=== PATIENT | female | born 1985 | race Caucasian/White ===

== ENCOUNTER 2025-10-20 02:25 | Inpatient (IN) | payer MEDICAID, OTHER ==
[2025-10-20] VITALS (11 sets, daily range): BP systolic 140–182; BP diastolic 83–102; TEMP 97.7–98.6; O2SAT 96–100
[~2025-10-20] VITALS: Ht 160 cm; Wt 88.5 kg
[2025-10-20] MEDS ORDERED: IPRATROPIUM BROMIDE 0.5 MG/2.5 ML NEBU ONE (02:49)
[2025-10-20] MEDS ORDERED: ALBUTEROL SULFATE 2.5 MG/3 ML NEBU ONE ×2 (02:49→03:29)
[2025-10-20] MEDS: IPRATROPIUM BROMIDE 0.5 MG/2.5 ML NEBU NEB ONE (02:54)
[2025-10-20] MEDS: ALBUTEROL SULFATE 2.5 MG/3 ML NEBU NEB ONE ×2 (02:54→03:26)
[2025-10-20 03:08] LABS: ABG BASE EXCESS -1.0 mmol/L (-2.0-3.0); ABG HCO3 25.8 mmol/L (21.0-28.0); ABG PCO2 51.3 mmHg (32.0-45.0); ABG PH 7.320 (7.350-7.450); ABG PO2 403.0 mmHg (83.0-108.0); ABG SITE RIGHT RADIAL; ABG TOTAL HEMOGLOBIN 14.6 G/dL (12.0-16.0); AaDO2 99.8 mmHg; FIO2 100.0 %; FLOW, BLOOD GAS 15.00 L/min (0.00-30.00)
[2025-10-20] MEDS ORDERED: IPRATROPIUM BROMIDE 0.5 MG/2.5 ML NEBU NEB PRN (07:00)
[2025-10-20] MEDS ORDERED: ONDANSETRON 4 MG/2 ML VIAL IV PRN (07:00)
[2025-10-20] MEDS ORDERED: MAGNESIUM HYDROXIDE 30 ML LIQUID UDC PO PRN (07:00)
[2025-10-20] MEDS ORDERED: ALBUTEROL SULFATE 1.25 MG/3 ML NEBU NEB PRN (07:00)
[2025-10-20] MEDS: ENOXAPARIN SODIUM 40 MG/0.4 ML DISP.SYRIN SQ SCH (08:21)
[2025-10-20] MEDS: IPRATROPIUM BROMIDE 0.5 MG/2.5 ML NEBU NEB SCH ×2 (08:25→11:07)
[2025-10-20] MEDS: ALBUTEROL SULFATE 1.25 MG/3 ML NEBU NEB SCH (08:25)
[2025-10-20 09:32] LABS: PLATELET COUNT (AUTO) 317 K/uL (179-408); RED BLOOD CELL COUNT(AUTO) 5.32 MIL/uL (3.63-4.92); RED CELL DISTRIBUTION WIDTH 14.6 % (12.3-17.7); WHITE BLOOD COUNT (AUTO) 14.8 K/uL (3.8-11.8)
[2025-10-20 09:48] LABS: ABG BASE EXCESS -2.4 mmol/L (-2.0-3.0); ABG HCO3 24.4 mmol/L (21.0-28.0); ABG PCO2 49.8 mmHg (32.0-45.0); ABG PH 7.308 (7.350-7.450); ABG PO2 97.1 mmHg (83.0-108.0); ABG SITE RIGHT RADIAL; ABG TOTAL HEMOGLOBIN 14.8 G/dL (12.0-16.0); AaDO2 96.7 mmHg; FIO2 40.0 %; FLOW, BLOOD GAS 5.00 L/min (0.00-30.00)
[2025-10-20 09:55] LABS: CREATININE 0.9 mg/dL (0.6-1.3); SODIUM SERUM 138.0 mmol/L (136-145); UREA NITROGEN, BLOOD 6.0 mg/dL (7-18)
[2025-10-20] MEDS ORDERED: FLUT1DIS4 IH (10:46)
[2025-10-20] MEDS ORDERED: HYDR12.55 PO (10:46)
[2025-10-20] MEDS ORDERED: AMLO10TA59 PO (10:46)
[2025-10-20] MEDS ORDERED: LORA-259 PO (10:47)
[2025-10-20] MEDS ORDERED: HYDR50TA62 PO (10:48)
[2025-10-20] MEDS ORDERED: GABA300C PO (10:48)
[2025-10-20] MEDS ORDERED: CLON0.1T PO (10:49)
[2025-10-20] MEDS ORDERED: QUET50TA PO (10:50)
[2025-10-20] MEDS ORDERED: METH-807 PO (10:50)
[2025-10-20] MEDS ORDERED: ONDA4TAB5 PO (10:51)
[2025-10-20] MEDS: AZITHROMYCIN IV 500 MG in IV DEXTROSE 5% 250 ML IV SCH (11:25)
[2025-10-20 16:25] LABS: *BILIRUBIN,URIN NEGATIVE (NEGATIVE); *BLOOD, URINE NEGATIVE (NEGATIVE); *CLARITY,URINE CLEAR (CLEAR); *COLOR,URINE YELLOW (YELLOW); *KETONES,URINE NEGATIVE (NEGATIVE); *PROTEIN,URINE NEGATIVE (NEGATIVE); *UROBILINOGEN,URINE 0.2 E.U./dl (NORMAL); LEUKOCYTE ESTERASE ,URINE NEGATIVE (NEGATIVE); NITRITE, URINE NEGATIVE (NEGATIVE); UGLUCOSE 3+ (NEGATIVE)
[2025-10-20 16:38] LABS: SQUAMOUS EPITHELIAL CELL,UR FEW /HPF (NONE SEEN)
[2025-10-20] MEDS: ACETAMINOPHEN 325 MG TABLET PO PRN (21:31)
[2025-10-21] VITALS (18 sets, daily range): BP systolic 116–148; BP diastolic 66–89; TEMP 97.8–99.4; O2SAT 94–100
[2025-10-21 06:41] LABS: PLATELET COUNT (AUTO) 317 K/uL (179-408); RED BLOOD CELL COUNT(AUTO) 5.06 MIL/uL (3.63-4.92); RED CELL DISTRIBUTION WIDTH 14.5 % (12.3-17.7); WHITE BLOOD COUNT (AUTO) 27.9 K/uL (3.8-11.8)
[2025-10-21 07:09] LABS: CREATININE 0.8 mg/dL (0.6-1.3); SODIUM SERUM 138.0 mmol/L (136-145); UREA NITROGEN, BLOOD 14.0 mg/dL (7-18)
[2025-10-21 08:17] LABS: *AMPHETAMINE, URINE POSITIVE (NEGATIVE); *BARBITURATE, URINE NEGATIVE (NEGATIVE); *BENZODIAZEPINE, URINE NEGATIVE (NEGATIVE); *CANNABINOID, URINE NEGATIVE (NEGATIVE); *COCCAINE, URINE NEGATIVE (NEGATIVE); *OPIATE, URINE NEGATIVE (NEGATIVE); *PHENCYCLIDINE SCREEN,URINE NEGATIVE (NEGATIVE); FENTANYL, URINE NEGATIVE (NEGATIVE)
[2025-10-21] MEDS ORDERED: AZIT500T2 PO (12:19)
[2025-10-21] MEDS ORDERED: PRED20TA PO (12:19)
[2025-10-22] VITALS (18 sets, daily range): BP systolic 130–166; BP diastolic 79–100; TEMP 97.3–98.8; O2SAT 93–100
[2025-10-22 06:30] LABS: ABG BASE EXCESS 5.7 mmol/L (-2.0-3.0); ABG HCO3 31.1 mmol/L (21.0-28.0); ABG PCO2 48.2 mmHg (32.0-45.0); ABG PH 7.428 (7.350-7.450); ABG PO2 79.9 mmHg (83.0-108.0); ABG SITE RIGHT RADIAL; ABG TOTAL HEMOGLOBIN 14.5 G/dL (12.0-16.0); AaDO2 96.0 mmHg; FIO2 32.0 %; FLOW, BLOOD GAS 3.00 L/min (0.00-30.00)
[2025-10-22 10:05] LABS: CREATININE 0.7 mg/dL (0.6-1.3); SODIUM SERUM 140.0 mmol/L (136-145); UREA NITROGEN, BLOOD 11.0 mg/dL (7-18)
[2025-10-22 10:08] LABS: PLATELET COUNT (AUTO) 323 K/uL (179-408); RED BLOOD CELL COUNT(AUTO) 5.47 MIL/uL (3.63-4.92); RED CELL DISTRIBUTION WIDTH 14.7 % (12.3-17.7); WHITE BLOOD COUNT (AUTO) 22.5 K/uL (3.8-11.8)
[2025-10-22] MEDS: LORAZEPAM 1 MG TABLET PO ONE (14:30)
[2025-10-22] MEDS: NICOTINE 21 MG/24HR PATCH TD SCH (18:14)
[2025-10-23] VITALS (12 sets, daily range): BP systolic 140–172; BP diastolic 89–114; TEMP 97.6–98; O2SAT 90–99
[2025-10-23 07:19] LABS: PLATELET COUNT (AUTO) 288 K/uL (179-408); RED BLOOD CELL COUNT(AUTO) 5.44 MIL/uL (3.63-4.92); RED CELL DISTRIBUTION WIDTH 14.6 % (12.3-17.7); WHITE BLOOD COUNT (AUTO) 14.7 K/uL (3.8-11.8)
[2025-10-23 07:39] LABS: CREATININE 0.6 mg/dL (0.6-1.3); SODIUM SERUM 137.0 mmol/L (136-145); UREA NITROGEN, BLOOD 11.0 mg/dL (7-18)
[2025-10-23] MEDS: AZITHROMYCIN 250 MG TABLET PO SCH (08:04)
[2025-10-23] MEDS: LABETALOL HCL 100 MG/20 ML VIAL IV ONE (09:58)
[2025-10-23] MEDS ORDERED: ALBU18HF2 INH (10:10)
[2025-10-24 18:07] LABS: ADENOVIRUS Not Detected (Not Detected); CORONAVIRUS 229E Not Detected (Not Detected); CORONAVIRUS HKU1 Not Detected (Not Detected); CORONAVIRUS NL63 Not Detected (Not Detected); CORONAVIRUS OC43 Not Detected (Not Detected); NP BORDETELLA PERTUSIS Not Detected (Not Detected); NP CHLAMYDOPHILA PNEUMONIAE Not Detected (Not Detected); NP HUMAN METAPNEUMOVIRUS Not Detected (Not Detected); NP HUMAN RHINO/ENTERO VIRUS Detected (Not Detected); NP INFLUENZA A Not Detected (Not Detected); NP INFLUENZA A/H1 Not Detected (Not Detected); NP INFLUENZA A/H1-2009 Not Detected (Not Detected); NP INFLUENZA A/H3 Not Detected (Not Detected); NP INFLUENZA B Not Detected (Not Detected); NP MYCOPLASMA PNEUMONIAE Not Detected (Not Detected); NP PARAINFLUENZA 1 Not Detected (Not Detected); NP PARAINFLUENZA 2 Not Detected (Not Detected); NP PARAINFLUENZA 3 Not Detected (Not Detected); NP PARAINFLUENZA 4 Not Detected (Not Detected); NP RESPIRATORY SYNCYTIAL VIRUS Not Detected (Not Detected)
== END 2025-10-23 12:05 | disposition other institution (70) | DRG 141 ==
LOC: ER 02:25 → TELE3 04:45
PROVIDERS: ADMIT Nurse Practitioner Acute Care
PROC: 5A09457 Assistance with Respiratory Ventilation, 24-96 Consecutive Hours, Continuous Positive Airway Pressure (ICD-10-PCS; 2025-10-20)
PROC: 05HB33Z Insertion of Infusion Device into Right Basilic Vein, Percutaneous Approach (ICD-10-PCS; principal; 2025-10-21)
DX: J45.902 Unspecified asthma with status asthmaticus (principal); J96.02 Acute respiratory failure with hypercapnia; J96.01 Acute respiratory failure with hypoxia; E66.9 Obesity, unspecified; I10 Essential (primary) hypertension; F10.10 Alcohol abuse, uncomplicated; F15.10 Other stimulant abuse, uncomplicated; R73.03 Prediabetes; Z68.34 Body mass index [BMI] 34.0-34.9, adult; Z88.6 Allergy status to analgesic agent
CPT/HCPCS: 36415; 36600; 71045; 82785; 82803; 83735; 84100; 84484; 85025; 87086; 94003; 94640; 94660; 94760; 99082-TC; G0378; J0456; J1650; J2919; J3490; J3590; J7050; Q0144